=== PATIENT | male | born 1995 | race African-American/Black ===

== ENCOUNTER 2017-05-17 12:30 | Emergency (ER) | payer SELFPAY ==
[~2017-05-17] VITALS: Ht 182.9 cm; Wt 77.0 kg
[~2017-05-17 12:30] MED LIST: HYDR-3533 PO
[2017-05-17 12:35] VITALS: BP 138/90; PULSE 114; RESP 16; TEMP 98.5; O2SAT 97
[2017-05-17] MEDS ORDERED: ACYC800T PO (12:59)
[2017-05-17] MEDS ORDERED: GABA100C4 PO (12:59)
--- NOTE | 2017-05-17 13:02 | PD ---
HPI Chief Complaint: Skin Problem Time Seen by Provider: 12:47 Travel History International Travel<30 days: No Contact w/Intl Traveler<30days: No Traveled to known affect area: No History of Present Illness HPI 22-year-old healthy male here for a 5 day history of rash on his left anterior chest region. He states that he was trying to use hydrocortisone topical to help control the rash but has only worsening. He says that he is having pain described as shooting and moderate. His rash is still erupting in some places and healing and others with clear blisters. States he had chickenpox and he was younger and is up-to-date with immunizations. He denies fevers, chills, chest pain, shortness of breath, back pain, flank pain. He has no other complaints today. PFSH Past Medical History Diminished Hearing: No Social History Alcohol Use: No Tobacco Use: No Substance Use: No Allergies-Medications (Allergen,Severity, Reaction): Coded Allergies: No Known Allergies (Unverified , 05/17/17) Reported Meds & Prescriptions Reported Meds & Active Scripts Active Gabapentin 100 Mg Cap 100 Mg PO TID Acyclovir 800 Mg Tab 800 Mg PO 5 TIMES A DAY 7 Days Review of Systems Except as stated in HPI: all other systems reviewed are Neg Physical Exam Narrative GENERAL: Well-nourished, well-developed patient. SKIN: Focused skin assessment warm/dry. Left chest clear blisters that do not cross the midline in T1 distribution. HEAD: Normocephalic. EYES: No scleral icterus. No injection or drainage. NECK: Supple, trachea midline. No JVD or lymphadenopathy. CARDIOVASCULAR: Regular rate and rhythm without murmurs, gallops, or rubs. RESPIRATORY: Breath sounds equal bilaterally. No accessory muscle use. MUSCULOSKELETAL: No cyanosis, or edema. BACK: Nontender without obvious deformity. No CVA tenderness. Data Data Last Documented VS Vital Signs Date Time Temp Pulse Resp B/P (MAP) Pulse Ox O2 Delivery O2 Flow Rate FiO2 05/17/17 12:35 98.5 114 16 138/90 (106) 97 MDM Medical Decision Making Medical Screen Exam Complete: Yes Emergency Medical Condition: Yes Differential Diagnosis Herpes zoster versus later dermatitis versus idiopathic rash Narrative Course 22-year-old healthy male here for a 5 day history of rash on his left anterior chest region. He states that he was trying to use hydrocortisone topical to help control the rash but has only worsening. He says that he is having pain described as shooting and moderate. His rash is still erupting in some places and healing and others with clear blisters. States he had chickenpox and he was younger and is up-to-date with immunizations. He denies fevers, chills, chest pain, shortness of breath, back pain, flank pain. He has no other complaints today. His rash is characteristic of herpes zoster. Her multiple blisters and different healing stages extending from his left axillary to mid chest without crossing the midline. Gabapentin prescribed for post herpetic neuralgia and acyclovir for the infection. Advised him that he is contagious and should avoid contact with others while lesions are present. Biased him to return to the emergency department if signs of infection develop. Diagnosis Primary Impression: Herpes zoster Qualified Codes: B02.9 - Zoster without complications Referrals: Primary Care Physician Additional Instructions: Keep area clean and dry. If site becomes Red and Swollen or develops pus return to the emergency department for further treatment and evaluation. Follow up with your primary care in 2-3 days. Take ALL of your antiviral medication to reduce complications. Your condition is contagious. Avoid contact with others until all lesions are healed. Scripts Gabapentin (Gabapentin) 100 Mg Cap 100 MG PO TID for Pain, #30 CAP 0 Refills Prov: Latrice Wood 05/17/17 Acyclovir (Acyclovir) 800 Mg Tab 800 MG PO 5 TIMES A DAY for Mgmt Viral Infection for 7 Days, TAB 0 Refills Prov: Latrice Wood 05/17/17 Disposition: 01 DISCHARGE HOME Condition: Stable Latrice Wood May 17, 2017 13:02
== END 2017-05-17 13:22 | disposition home or self-care (01) ==
LOC: PHEFT 12:30
DX: B02.9 Zoster without complications (principal)
CPT/HCPCS: 99284